=== PATIENT | female | born 1950 | race Caucasian/White ===

== ENCOUNTER 2018-02-24 20:35 | Inpatient (IN) | payer MEDICARE, MEDICAID ==
[~2018-02-24] VITALS: Ht 157.5 cm; Wt 92.1 kg
[~2018-02-24 20:35] MED LIST: ACET-2154 PO; CRAN425C6 PO; DOCU250C30 PO; FOLI1TAB16 PO; MAALOX PO; MAGN400O6 PO; MULT1TAB11 PO; NA P133E RC
--- NOTE | 2018-02-24 20:41 | NUR ---
PT AMBULATED TO BATHROOM W/ STEADY GAIT. NO DISTRESS NOTED.
--- NOTE | 2018-02-24 20:54 | NUR ---
DR MAMI CLARKE MD AT BEDSIDE FOR MSE/MED CLEARANCE.
--- NOTE | 2018-02-24 21:07 | NUR ---
LAB AT PT BEDSIDE FOR BLOOD DRAW.
[2018-02-24] MEDS ORDERED: MAGN400T26 PO (21:10)
[2018-02-24] MEDS ORDERED: METO50TA7 PO (21:10)
[2018-02-24] MEDS ORDERED: OLAN5TAB3 PO (21:10)
[2018-02-24] MEDS ORDERED: DIVA125T2 PO ×2 (21:10)
[2018-02-24] MEDS ORDERED: CALC500T51 PO (21:10)
[2018-02-24] MEDS ORDERED: MELA3TAB PO (21:10)
[2018-02-24] MEDS ORDERED: MAG355OR18 PO (21:10)
[2018-02-24 21:17] LABS: BASOPHILS % (AUTO) 0.9 % (0.0-2.0); EOSINOPHILS # (AUTO) 0.1 K/uL (0.0-0.7); EOSINOPHILS % (AUTO) 2.9 % (0.0-7.0); HEMOGLOBIN 10.9 g/dL (10.9-14.3); LYMPHOCYTES # (AUTO) 1.4 K/uL (20.0-40.0); LYMPHOCYTES % (AUTO) 27.4 % (20.5-51.5); MEAN CORPUSCULAR HEMOGLOBIN 30.4 uug (24.7-32.8); MEAN CORPUSCULAR HGB CONC 33 g/dL (32.3-35.6); MEAN CORPUSCULAR VOLUME 91.7 fL (75.5-95.3); MONOCYTES # (AUTO) 0.8 K/uL (2.0-10.0); MONOCYTES % (AUTO) 14.8 % (0.0-11.0); NEUTROPHILS # (AUTO) 2.8 K/uL (1.8-8.9); PLATELET COUNT (AUTO) 201 K/uL (179-408); WHITE BLOOD COUNT (AUTO) 5.2 K/uL (3.8-11.8)
[2018-02-24 21:20] LABS: *BILIRUBIN,URIN NEGATIVE (NEGATIVE); *BLOOD, URINE 2+ (NEGATIVE); *CLARITY,URINE CLOUDY (CLEAR); *COLOR,URINE LIGHT YELLOW (YELLOW); *KETONES,URINE NEGATIVE (NEGATIVE); *PROTEIN,URINE NEGATIVE (NEGATIVE); *UROBILINOGEN,URINE 0.2 E.U./dl (NORMAL); LEUKOCYTE ESTERASE ,URINE 3+ (NEGATIVE); NITRITE, URINE NEGATIVE (NEGATIVE); UGLUCOSE NEGATIVE (NEGATIVE)
[2018-02-24 21:21] LABS: *AMPHETAMINE, URINE NEGATIVE (NEGATIVE); *BARBITURATE, URINE NEGATIVE (NEGATIVE); *CANNABINOID, URINE NEGATIVE (NEGATIVE); *COCCAINE, URINE NEGATIVE (NEGATIVE); *OPIATE, URINE NEGATIVE (NEGATIVE); *PHENCYCLIDINE SCREEN,URINE NEGATIVE (NEGATIVE)
[2018-02-24 21:25] LABS: BACTERIA,URINE FEW /HPF (NONE SEEN); WBC,URINE 80-100 /HPF (0-3)
[2018-02-24 21:26] LABS: SQUAMOUS EPITHELIAL CELL,UR FEW /HPF (NONE SEEN)
[2018-02-24 21:28] LABS: CARBON DIOXIDE 30 mmol/L (21-32); CHLORIDE 107 mmol/L (98-107); GLUCOSE 114 mg/dL (74-106); POTASSIUM 3.8 mmol/L (3.5-5.1); UREA NITROGEN, BLOOD 16 mg/dL (7-18)
[2018-02-24 21:34] LABS: ALANINE AMINOTRANSFERASE 14 U/L (14-59); ALKALINE PHOSPHATASE 85 U/L (50-136); ASPARTATE AMINOTRANSFERASE 6 U/L (15-37); BILIRUBIN,DIRECT 0.1 mg/dL (0.0-0.2); BILIRUBIN,TOTAL 0.3 mg/dL (0.2-1.0); TOTAL PROTEIN, SERUM 6.4 g/dL (6.4-8.2)
[2018-02-24 21:35] LABS: ACETAMINOPHEN < 2.0 ug/mL (10-30)
[2018-02-24 21:36] LABS: ETHANOL < 3 MG/DL (0-0)
[2018-02-24] MEDS ORDERED: DIVALPROEX 250 MG TABLET.DR PO ONE (22:00)
[2018-02-24] MEDS ORDERED: CIPROFLOXACIN HCL 250 MG TABLET PO ONE (22:00)
--- NOTE | 2018-02-24 22:21 | NUR ---
REPORT GIVEN TO GIOVANNI SCHWARTZ.
--- NOTE | 2018-02-24 22:23 | NUR ---
Pt. admitted to [facility]HU, under care of Dr. JEFFERY Belongs List completed
[2018-02-24] MEDS ORDERED: ACETAMINOPHEN 325 MG TABLET PO PRN ×2 (23:00→23:30)
[2018-02-24] MEDS ORDERED: MAG HYDROX/AL HYDROX/SIMETH 30 ML LIQUID UDC PO PRN ×2 (23:00→23:30)
[2018-02-24] MEDS ORDERED: MAGNESIUM HYDROXIDE 30 ML LIQUID UDC PO PRN ×2 (23:00→23:30)
[2018-02-24] MEDS: TEMAZEPAM 7.5 MG CAPSULE PO PRN (23:25)
--- NOTE | 2018-02-25 00:09 | NUR ---
RECEIVED PT FROM ER EARLIER 02/24/2018 2225H VIA [place]. BELONGING LIST DONE. ADMISSION PROCESS AND CARE PLAN INITIATED. LONG TERM ASSESSMENT DONE. PT HAVE REDNESS OR RASH AT HER CHEST. GOT A CONSENT OF THE PT TO TAKE PICTURES OF HER. NO RESPONSIBLE DEMOCRAT TO NOTIFY. PT SIGNED THE PAPERS. PT WAS CALM AND COOPERATIVE DURING ADMISSION PROCESS. SAFETY AND COMFORT PROVIDED. BOTH PSYCHIATRIST AND LINE HELPER ASSIGNED TO THE PT WERE AWARE OF THE PT ARRIVAL ON UNIT. WILL CONTINUE TO MONITOR.
[2018-02-25] MEDS ORDERED: CEPHALEXIN MONOHYDRATE 500 MG CAPSULE PO SCH (02:00)
--- NOTE | 2018-02-25 06:05 | NUR ---
PT SLEPT THROUGHOUT THE SHIFT. PT COMPLIANT WITH CARE. PT SHOWS NO SIGNS OF DISTRESS. PT TOOK A SHOWER. SAFETY AND COMFORT PROVIDED. ALL NEEDS ARE MET. PRESCRIBED MEDICATION GIVEN AND PT TOLERATED IT WELL. WILL ENDORSE ACCORDINGLY TO INCOMING NURSE.
[2018-02-25 07:35] VITALS: BP 109/43
[2018-02-25] MEDS: CEPHALEXIN MONOHYDRATE 500 MG CAPSULE PO SCH ×2 (08:26→20:08)
[2018-02-25] MEDS: FOLIC ACID 1 MG TABLET PO SCH (08:27)
[2018-02-25] MEDS: DOCUSATE SODIUM 250 MG CAPSULE PO SCH ×2 (08:27→17:06)
[2018-02-25] MEDS: MAGNESIUM OXIDE 400 MG TABLET PO SCH (08:27)
[2018-02-25] MEDS: METOPROLOL SUCCINATE XL 50 MG TAB.SR.24H PO SCH (08:28)
[2018-02-25] MEDS: CALCIUM CARBONATE 500 MG TABLET PO SCH ×3 (08:30→17:07)
[2018-02-25] MEDS ORDERED: DIVALPROEX 125 MG TABLET.DR PO SCH ×3 (09:00→17:00)
[2018-02-25] MEDS: OLANZAPINE 5 MG TABLET PO SCH ×2 (09:40→17:06)
[2018-02-25 15:42] VITALS: BP 102/42
[2018-02-25] MEDS: DIVALPROEX 250 MG TABLET.DR PO SCH (17:06)
[2018-02-25] MEDS ORDERED: DEXTROSE 50% 50 ML DISP.SYRIN IV PRN (17:30)
[2018-02-25] MEDS ORDERED: INSULIN REGULAR, HUMAN 300 UNIT/3 ML VIAL SQ PRN (17:30)
[2018-02-25 20:06] VITALS: BP 117/47
[2018-02-25] MEDS: ACETAMINOPHEN 325 MG TABLET PO PRN (20:08)
[2018-02-25] MEDS ORDERED: DIVALPROEX 250 MG TABLET.DR PO SCH (21:00)
[2018-02-25] MEDS ORDERED: MELATONIN 3 MG TABLET PO SCH (21:00)
[2018-02-25] MEDS ORDERED: BLOOD SUGAR DIAGNOSTIC 1 EACH STRIP VI SCH (21:00)
[2018-02-26 07:30] VITALS: BP 135/57
[2018-02-26] MEDS: CHOLECALCIFEROL 400 UNITS TABLET PO SCH (08:00)
[2018-02-26] MEDS: CEPHALEXIN MONOHYDRATE 500 MG CAPSULE PO SCH ×2 (08:00→20:29)
[2018-02-26] MEDS: DIVALPROEX 250 MG TABLET.DR PO SCH ×3 (08:00→16:51)
[2018-02-26] MEDS: FOLIC ACID 1 MG TABLET PO SCH (08:00)
[2018-02-26] MEDS: DOCUSATE SODIUM 250 MG CAPSULE PO SCH (08:00)
[2018-02-26] MEDS: OLANZAPINE 5 MG TABLET PO SCH ×2 (08:00→16:51)
[2018-02-26] MEDS: CALCIUM CARBONATE 500 MG TABLET PO SCH ×3 (08:00→16:51)
[2018-02-26] MEDS: MAGNESIUM OXIDE 400 MG TABLET PO SCH (08:00)
[2018-02-26] MEDS: METOPROLOL SUCCINATE XL 50 MG TAB.SR.24H PO SCH (08:01)
--- NOTE | 2018-02-26 12:01 | NUR ---
Initial DC Plan: Patient currently resides at [facility] [[id number] [place] [address]; ]. KEKE spoke to Chad at [facility] who confirmed they can accept patient back when ready. KEKE will follow up with MD and patient to discuss most appropriate discharge plans. SW will form a safe and proper discharge.
[2018-02-26] MEDS: LORAZEPAM 0.5 MG TABLET PO PRN (12:11)
[2018-02-26] MEDS: DOCUSATE SODIUM 100 MG CAPSULE PO SCH (16:51)
[2018-02-26 17:24] VITALS: BP 101/63
--- NOTE | 2018-02-26 18:10 | NUR ---
Spoke with Luz Randhawa on the telephone and made aware of pt's chest rash.
[2018-02-26 21:05] VITALS: BP 110/63
--- NOTE | 2018-02-26 21:51 | NUR ---
GPS: Luz Logan NET SOLUT[employer] ARCHITECT in the unit at this time and was reminded of pt's rash on chest area. Awaiting for any orders,if any.
[2018-02-27] MEDS: FOLIC ACID 1 MG TABLET PO SCH (08:02)
[2018-02-27] MEDS: MAGNESIUM OXIDE 400 MG TABLET PO SCH ×2 (08:02→08:13)
[2018-02-27] MEDS: CALCIUM CARBONATE 500 MG TABLET PO SCH ×3 (08:02→16:58)
[2018-02-27] MEDS: DIVALPROEX 250 MG TABLET.DR PO SCH ×3 (08:03→16:57)
[2018-02-27] MEDS: DOCUSATE SODIUM 100 MG CAPSULE PO SCH ×2 (08:04→16:58)
[2018-02-27] MEDS: CHOLECALCIFEROL 400 UNITS TABLET PO SCH (08:04)
[2018-02-27] MEDS: OLANZAPINE 5 MG TABLET PO SCH ×2 (08:04→16:58)
[2018-02-27] MEDS: CEPHALEXIN MONOHYDRATE 500 MG CAPSULE PO SCH ×2 (08:05→21:54)
[2018-02-27] MEDS: METOPROLOL SUCCINATE XL 50 MG TAB.SR.24H PO SCH (08:05)
[2018-02-27] MEDS: NICOTINE 14 MG/24HR PATCH TD SCH ×2 (08:05→08:13)
[2018-02-27] MEDS: LORAZEPAM 0.5 MG TABLET PO PRN (08:07)
[2018-02-27 10:39] VITALS: BP 90/49
[2018-02-27 10:42] VITALS: BP 90/49
[2018-02-27 15:37] VITALS: BP 104/75
[2018-02-27 20:23] VITALS: BP 112/55
--- NOTE | 2018-02-27 23:36 | NUR ---
RECEIVED PATIENT IN BED ASLEEP AND ON SCHEDULED ROUNDS SHE WAS NOT IN DISTRESS NEITHER WAS ANY SOB NOTED.SHE ALSO DENIES PAIN. SHE IS ALERT BUT COULD NOT ASSESS ORIENTATION.DENIES SI/HI AND SAID SHE WAS BROUGHT HERE TO SLEEP AND THERE WAS NOTHING WRONG WITH HER.SHE IS COMPLIANT WITH HER MEDS AND CARE.FREQUENT CHECKS MADE TO HER ROOM AND SAFETY MEASURES PUT IN PLACE.WILL CONTINUE TO MONITOR.
--- NOTE | 2018-02-28 06:43 | NUR ---
PATIENT SLEPT INTERMITTENTLY FOR APPROX. 6;30 HRS. SHE WOKE UP DURING THE NIGHT TO PACE THE HALLWAY A FEW TIMES AND TO ASK FOR SNACKS. SAME SERVED AND SHE LATER RETURNED TO BED. SAFETY PRECAUTIONS EMPHASIZED.
[2018-02-28] MEDS: MAGNESIUM OXIDE 400 MG TABLET PO SCH (08:31)
[2018-02-28] MEDS: CHOLECALCIFEROL 400 UNITS TABLET PO SCH (08:32)
[2018-02-28] MEDS: DOCUSATE SODIUM 100 MG CAPSULE PO SCH ×2 (08:32→17:29)
[2018-02-28] MEDS: CALCIUM CARBONATE 500 MG TABLET PO SCH ×3 (08:32→17:29)
[2018-02-28] MEDS: METOPROLOL SUCCINATE XL 50 MG TAB.SR.24H PO SCH (08:34)
[2018-02-28] MEDS: FOLIC ACID 1 MG TABLET PO SCH (08:34)
[2018-02-28] MEDS: OLANZAPINE 5 MG TABLET PO SCH ×2 (08:35→17:29)
[2018-02-28] MEDS: DIVALPROEX 250 MG TABLET.DR PO SCH ×3 (08:35→17:30)
[2018-02-28] MEDS: CEPHALEXIN MONOHYDRATE 500 MG CAPSULE PO SCH ×2 (08:36→20:15)
[2018-02-28] MEDS: NICOTINE 14 MG/24HR PATCH TD SCH (08:36)
[2018-02-28 10:07] VITALS: BP 117/57
[2018-02-28 15:56] VITALS: BP 90/50
[2018-02-28] MEDS: ACETAMINOPHEN 325 MG TABLET PO PRN (17:29)
--- NOTE | 2018-02-28 18:54 | NUR ---
Patient is compliant with all her medications/medical care/diet. Redirectable. Ambulater with minimal assist. No SDI/agitation noted. will monitor.
[2018-02-28 20:15] VITALS: BP 109/55
[2018-02-28] MEDS: TEMAZEPAM 7.5 MG CAPSULE PO PRN (23:57)
[2018-03-01 07:30] VITALS: BP 131/75
[2018-03-01] MEDS: CEPHALEXIN MONOHYDRATE 500 MG CAPSULE PO SCH ×2 (08:21→20:09)
[2018-03-01] MEDS: FOLIC ACID 1 MG TABLET PO SCH (08:21)
[2018-03-01] MEDS: CHOLECALCIFEROL 400 UNITS TABLET PO SCH (08:22)
[2018-03-01] MEDS: DIVALPROEX 250 MG TABLET.DR PO SCH ×3 (08:22→16:13)
[2018-03-01] MEDS: OLANZAPINE 5 MG TABLET PO SCH ×2 (08:22→16:53)
[2018-03-01] MEDS: MAGNESIUM OXIDE 400 MG TABLET PO SCH (08:22)
[2018-03-01] MEDS: DOCUSATE SODIUM 100 MG CAPSULE PO SCH ×2 (08:23→16:12)
[2018-03-01] MEDS: METOPROLOL SUCCINATE XL 50 MG TAB.SR.24H PO SCH (08:25)
[2018-03-01] MEDS: NICOTINE 14 MG/24HR PATCH TD SCH (08:26)
[2018-03-01] MEDS: CALCIUM CARBONATE 500 MG TABLET PO SCH ×3 (08:28→16:13)
--- NOTE | 2018-03-01 10:15 | NUR ---
patient compliant with medication regime, no signs of agitation/jimmy. stable condition, no s/s of distress. compliant with care.
[2018-03-01 19:30] VITALS: BP 109/49
--- NOTE | 2018-03-02 07:25 | NUR ---
WOUND CARE CONSULT WOUND CARE RECEIVED CONSULT FOR CHEST RASH. WOUND CARE WILL DEFER TO PRIMARY MEDICAL TEAM FOR THIS RASH. WILL SEE PRN.
[2018-03-02 07:30] VITALS: BP 119/71
[2018-03-02] MEDS: MAGNESIUM OXIDE 400 MG TABLET PO SCH (09:00)
[2018-03-02] MEDS: CHOLECALCIFEROL 400 UNITS TABLET PO SCH (10:13)
[2018-03-02] MEDS: OLANZAPINE 5 MG TABLET PO SCH ×2 (10:13→17:37)
[2018-03-02] MEDS: FOLIC ACID 1 MG TABLET PO SCH (10:13)
[2018-03-02] MEDS: CALCIUM CARBONATE 500 MG TABLET PO SCH ×3 (10:13→17:37)
[2018-03-02] MEDS: CEPHALEXIN MONOHYDRATE 500 MG CAPSULE PO SCH (10:14)
[2018-03-02] MEDS: DIVALPROEX 250 MG TABLET.DR PO SCH ×2 (10:14→17:37)
[2018-03-02] MEDS: DOCUSATE SODIUM 100 MG CAPSULE PO SCH ×2 (10:14→17:37)
[2018-03-02] MEDS: NICOTINE 14 MG/24HR PATCH TD SCH (10:16)
[2018-03-02] MEDS: METOPROLOL SUCCINATE XL 50 MG TAB.SR.24H PO SCH (10:16)
[2018-03-02] MEDS: SULFAMETH/TRIMETH 800/160 MG TABLET PO SCH ×2 (13:19→20:08)
[2018-03-02 16:17] VITALS: BP 99/69
[2018-03-02 19:30] VITALS: BP 109/42
[2018-03-02] MEDS: ACETAMINOPHEN 325 MG TABLET PO PRN (20:24)
[2018-03-03] MEDS: LORAZEPAM 0.5 MG TABLET PO PRN ×2 (05:37→11:53)
[2018-03-03 07:30] VITALS: BP 138/83
[2018-03-03] MEDS: CALCIUM CARBONATE 500 MG TABLET PO SCH ×3 (07:30→17:16)
[2018-03-03] MEDS: NICOTINE 14 MG/24HR PATCH TD SCH ×2 (09:00→09:13)
[2018-03-03] MEDS: MAGNESIUM OXIDE 400 MG TABLET PO SCH (09:13)
[2018-03-03] MEDS: FOLIC ACID 1 MG TABLET PO SCH (09:13)
[2018-03-03] MEDS: CHOLECALCIFEROL 400 UNITS TABLET PO SCH (09:13)
[2018-03-03] MEDS: OLANZAPINE 5 MG TABLET PO SCH ×2 (09:13→17:06)
[2018-03-03] MEDS: DOCUSATE SODIUM 100 MG CAPSULE PO SCH ×2 (09:13→17:06)
[2018-03-03] MEDS: SULFAMETH/TRIMETH 800/160 MG TABLET PO SCH ×2 (09:13→20:21)
[2018-03-03] MEDS: METOPROLOL SUCCINATE XL 50 MG TAB.SR.24H PO SCH (09:13)
[2018-03-03] MEDS: DIVALPROEX 250 MG TABLET.DR PO SCH ×2 (09:13→17:06)
[2018-03-03] MEDS ORDERED: DEXTROSE 50% 50 ML DISP.SYRIN IV PRN (09:30)
[2018-03-03] MEDS ORDERED: INSULIN REGULAR, HUMAN 300 UNIT/3 ML VIAL SQ PRN (09:30)
[2018-03-03] MEDS: BLOOD SUGAR DIAGNOSTIC 1 EACH STRIP VI SCH ×3 (11:30→20:21)
[2018-03-03 16:54] VITALS: BP 105/60
[2018-03-03 20:04] VITALS: BP 136/58
--- NOTE | 2018-03-03 21:00 | NUR ---
RECEIVED PT SITTING IN CHAIR AT RECREATION ROOM. TOOK HER SCHEDULED MED BUT REFUSED ACCUCHECK, ATE SNACK PUDDING & TAKING FLUIDS, CRANBERY JUICE. CONT. TO WATCH CLOSELY.
--- NOTE | 2018-03-04 05:57 | NUR ---
REMAINS ASLEEP. NOT IN ANY DISTRESS.
[2018-03-04] MEDS: BLOOD SUGAR DIAGNOSTIC 1 EACH STRIP VI SCH ×4 (06:38→21:00)
--- NOTE | 2018-03-04 06:40 | NUR ---
PT. SLEPT 8HRS, COMPLIANT WITH CARE.SAFETY ENVIRONMENT PROVIDED. REPORT WILL BE GIVEN TO INCOMING NURSE ACCORDINGLY. ACCUCHECK DONE BS-82.
[2018-03-04 07:30] VITALS: BP 102/53
[2018-03-04] MEDS: DIVALPROEX 250 MG TABLET.DR PO SCH ×2 (08:30→17:19)
[2018-03-04] MEDS: CHOLECALCIFEROL 400 UNITS TABLET PO SCH (08:30)
[2018-03-04] MEDS: OLANZAPINE 5 MG TABLET PO SCH ×2 (08:31→17:19)
[2018-03-04] MEDS: SULFAMETH/TRIMETH 800/160 MG TABLET PO SCH ×2 (08:31→21:31)
[2018-03-04] MEDS: DOCUSATE SODIUM 100 MG CAPSULE PO SCH ×2 (08:31→17:19)
[2018-03-04] MEDS: FOLIC ACID 1 MG TABLET PO SCH (08:33)
[2018-03-04] MEDS: METOPROLOL SUCCINATE XL 50 MG TAB.SR.24H PO SCH (08:33)
[2018-03-04] MEDS: MAGNESIUM OXIDE 400 MG TABLET PO SCH (08:48)
[2018-03-04] MEDS: NICOTINE 14 MG/24HR PATCH TD SCH (08:55)
[2018-03-04] MEDS: CALCIUM CARBONATE 500 MG TABLET PO SCH ×3 (08:55→17:19)
[2018-03-04 15:00] VITALS: BP 97/55
--- NOTE | 2018-03-04 17:17 | NUR ---
1630 PATIENT CONTINUE TO REFUSED BLOOD SUGAR ACCUHECK DESPITE OF THE EXPLANATION AND ENCOURAGEMENT.
[2018-03-04] MEDS: LORAZEPAM 0.5 MG TABLET PO PRN (18:13)
[2018-03-04 20:00] VITALS: BP 111/53
--- NOTE | 2018-03-04 22:00 | NUR ---
received to care, watching tv, non interactive with peers, but pleasant upon approach. compliant with po medications, but continues to refuse her blood sugar check. she remained asymptomatic. as of 2200, she appears to be asleep in her bed. no dsitress noted. will continue to monitor closely.
--- NOTE | 2018-03-05 06:00 | NUR ---
slept 7.0 hours. assisted with am care, and shower. refused am accu check. remains asymptomatic. currently lying in bed. no distress noted.
[2018-03-05] MEDS: BLOOD SUGAR DIAGNOSTIC 1 EACH STRIP VI SCH ×4 (06:23→20:29)
[2018-03-05 07:30] VITALS: BP 115/64
[2018-03-05] MEDS: SULFAMETH/TRIMETH 800/160 MG TABLET PO SCH ×2 (08:06→20:29)
[2018-03-05] MEDS: DOCUSATE SODIUM 100 MG CAPSULE PO SCH ×2 (08:07→17:43)
[2018-03-05] MEDS: FOLIC ACID 1 MG TABLET PO SCH (08:07)
[2018-03-05] MEDS: DIVALPROEX 250 MG TABLET.DR PO SCH ×3 (08:07→17:43)
[2018-03-05] MEDS: OLANZAPINE 5 MG TABLET PO SCH ×2 (08:07→17:42)
[2018-03-05] MEDS: METOPROLOL SUCCINATE XL 50 MG TAB.SR.24H PO SCH (08:07)
[2018-03-05] MEDS: NICOTINE 14 MG/24HR PATCH TD SCH (08:08)
[2018-03-05] MEDS: CHOLECALCIFEROL 400 UNITS TABLET PO SCH (08:08)
[2018-03-05] MEDS: CALCIUM CARBONATE 500 MG TABLET PO SCH ×3 (08:08→17:43)
[2018-03-05] MEDS: MAGNESIUM OXIDE 400 MG TABLET PO SCH (08:14)
--- NOTE | 2018-03-05 11:55 | NUR ---
GPS/RN- shouting and yelling noted in unit, upon approach patient noted yelling talking to herself in her room , responding to stimuli, redirected continue to monitor
[2018-03-05 15:26] VITALS: BP 128/50
--- NOTE | 2018-03-05 22:00 | NUR ---
received to care, lying in bed, but pleasant upon approach. compliant with po medications, but continues to refuse her blood sugar check. she remained asymptomatic. as of 2200, she appears to be asleep in her bed. no distress noted. will continue to monitor closely.
[2018-03-06] MEDS: BLOOD SUGAR DIAGNOSTIC 1 EACH STRIP VI SCH ×4 (06:38→20:35)
[2018-03-06 07:30] VITALS: BP 130/58
[2018-03-06] MEDS: DOCUSATE SODIUM 100 MG CAPSULE PO SCH ×2 (08:35→16:39)
[2018-03-06] MEDS: NICOTINE 14 MG/24HR PATCH TD SCH (08:35)
[2018-03-06] MEDS: CHOLECALCIFEROL 400 UNITS TABLET PO SCH (08:35)
[2018-03-06] MEDS: CALCIUM CARBONATE 500 MG TABLET PO SCH ×3 (08:35→16:38)
[2018-03-06] MEDS: MAGNESIUM OXIDE 400 MG TABLET PO SCH ×2 (08:35→08:44)
[2018-03-06] MEDS: FOLIC ACID 1 MG TABLET PO SCH (08:36)
[2018-03-06] MEDS: METOPROLOL SUCCINATE XL 50 MG TAB.SR.24H PO SCH (08:36)
[2018-03-06] MEDS: OLANZAPINE 5 MG TABLET PO SCH ×2 (08:37→16:39)
[2018-03-06] MEDS: SULFAMETH/TRIMETH 800/160 MG TABLET PO SCH ×2 (08:37→20:33)
[2018-03-06] MEDS: DIVALPROEX 250 MG TABLET.DR PO SCH ×3 (08:37→16:39)
[2018-03-06 16:47] VITALS: BP 132/56
[2018-03-06 20:00] VITALS: BP 95/45
[2018-03-06 20:20] VITALS: BP 105/60
[2018-03-07] MEDS: BLOOD SUGAR DIAGNOSTIC 1 EACH STRIP VI SCH ×4 (06:38→20:10)
[2018-03-07 07:30] VITALS: BP 110/65
[2018-03-07] MEDS: DOCUSATE SODIUM 100 MG CAPSULE PO SCH ×2 (08:20→16:46)
[2018-03-07] MEDS: METOPROLOL SUCCINATE XL 50 MG TAB.SR.24H PO SCH (08:21)
[2018-03-07] MEDS: SULFAMETH/TRIMETH 800/160 MG TABLET PO SCH ×2 (08:21→20:09)
[2018-03-07] MEDS: CALCIUM CARBONATE 500 MG TABLET PO SCH ×3 (08:21→16:46)
[2018-03-07] MEDS: DIVALPROEX 250 MG TABLET.DR PO SCH ×3 (08:21→16:46)
[2018-03-07] MEDS: FOLIC ACID 1 MG TABLET PO SCH (08:21)
[2018-03-07] MEDS: CHOLECALCIFEROL 400 UNITS TABLET PO SCH (08:21)
[2018-03-07] MEDS: MAGNESIUM OXIDE 400 MG TABLET PO SCH (08:22)
[2018-03-07] MEDS: NICOTINE 14 MG/24HR PATCH TD SCH (08:22)
[2018-03-07] MEDS: OLANZAPINE 5 MG TABLET PO SCH ×2 (08:22→16:46)
[2018-03-07 16:39] VITALS: BP 107/53
[2018-03-07 19:30] VITALS: BP 106/38
[2018-03-08] MEDS: TEMAZEPAM 7.5 MG CAPSULE PO PRN (00:33)
[2018-03-08] MEDS: BLOOD SUGAR DIAGNOSTIC 1 EACH STRIP VI SCH ×2 (06:33→11:30)
[2018-03-08 07:30] VITALS: BP 113/56
[2018-03-08] MEDS: NICOTINE 14 MG/24HR PATCH TD SCH (09:00)
[2018-03-08] MEDS: DOCUSATE SODIUM 100 MG CAPSULE PO SCH (09:08)
[2018-03-08] MEDS: CHOLECALCIFEROL 400 UNITS TABLET PO SCH (09:08)
[2018-03-08] MEDS: SULFAMETH/TRIMETH 800/160 MG TABLET PO SCH (09:08)
[2018-03-08 09:09] VITALS: BP 113/56
[2018-03-08] MEDS: OLANZAPINE 5 MG TABLET PO SCH (09:09)
[2018-03-08] MEDS: MAGNESIUM OXIDE 400 MG TABLET PO SCH (09:09)
[2018-03-08] MEDS: METOPROLOL SUCCINATE XL 50 MG TAB.SR.24H PO SCH (09:09)
[2018-03-08] MEDS: DIVALPROEX 250 MG TABLET.DR PO SCH ×2 (09:10→12:12)
[2018-03-08] MEDS: FOLIC ACID 1 MG TABLET PO SCH (09:10)
[2018-03-08] MEDS: CALCIUM CARBONATE 500 MG TABLET PO SCH ×2 (09:10→11:54)
--- NOTE | 2018-03-08 09:51 | NUR ---
DC Note: Patient will be discharged to [facility] [[id number] [place] [address]; ] via ambulance. KEKE spoke with Chad at [facility] to confirm they can accept patient today. Patient is aware and agreeable to discharge plans. Patient has no primary contacts to notify of discharge. Patient will follow up with Dr. Huang (Psychiatrist) and Dr. Romero (Decal Decorator) at the facility. Patient was provided smoking cessation referrals for [employer] [id number] and [employer] [phone].
--- NOTE | 2018-03-08 13:00 | NUR ---
GPS: Nursing Notes: Discharge Notes: Patient is awake and responding to her name, cooperative with nursing care, compliant with her medications, following staff directions, denies any SI/HI, denies any AH/VH, denies any pain or discomfort, denies any SOB, discharge to [facility] at [address] [place] [address] , report given to Chirag RN supervisor tank house, transported to facility via ambulance, took all her belongings with her. Patient will follow up with Dr. Huang (Psychiatrist) and Dr. Romero (Tipple Operator) at the facility. Patient was provided smoking cessation referrals for [place] [employer] [id number] and [employer] [phone].
--- NOTE | 2018-03-08 15:21 | NUR ---
Firearms Reporting: KEKE submitted Mental Health Report to [facility] on 03/08.
== END 2018-03-08 13:00 | DRG 885 ==
LOC: ER 20:38 → GPS 22:10
PROVIDERS: ADMIT Psychiatry & Neurology Psychiatry; ATTEND Registered Nurse
DX: F20.0 Paranoid schizophrenia (principal); N30.00 Acute cystitis without hematuria; G40.909 Epilepsy, unspecified, not intractable, without status epilepticus; K21.9 Gastro-esophageal reflux disease without esophagitis; Z79.899 Other long term (current) drug therapy; B96.1 Klebsiella pneumoniae [K. pneumoniae] as the cause of diseases classified elsewhere; Z16.11 Resistance to penicillins; L08.9 Local infection of the skin and subcutaneous tissue, unspecified; B95.62 Methicillin resistant Staphylococcus aureus infection as the cause of diseases classified elsewhere; B36.8 Other specified superficial mycoses; I10 Essential (primary) hypertension; D50.9 Iron deficiency anemia, unspecified; Z72.0 Tobacco use; Z91.19 Patient's noncompliance with other medical treatment and regimen; G47.00 Insomnia, unspecified; F32.9 Major depressive disorder, single episode, unspecified; F03.90 Unspecified dementia, unspecified severity, without behavioral disturbance, psychotic disturbance, mood disturbance, and anxiety; F41.9 Anxiety disorder, unspecified
CPT/HCPCS: 36415; 80164; 80307; 83735; 85025; 87070; 87077; 87086; 93005; A4663; G0480; G0480-TC; J1815; J3490